=== PATIENT | female | born 1940 | race Two or more races ===

== ENCOUNTER 2018-09-23 11:10 | Outpatient (CLI) | payer OTHER | END 2018-09-23 11:24 | disposition home or self-care (01) | LOC: NUCLEAR 11:10 | DX: M81.0 Age-related osteoporosis without current pathological fracture (principal) ==

== ENCOUNTER 2021-01-03 02:08 | Outpatient (CLI) | payer OTHER | END 2021-01-03 14:09 | disposition home or self-care (01) | LOC: PPH VACUNA 02:08 | PROVIDERS: ATTEND Emergency Medicine Pediatric Emergency Medicine | DX: Z23 Encounter for immunization (principal) ==

== ENCOUNTER → 2021-01-24 16:41 | Outpatient (CLI) | payer OTHER | END | disposition home or self-care (01) | LOC: PPH VACUNA 16:41 | PROVIDERS: ATTEND Emergency Medicine Pediatric Emergency Medicine | DX: Z23 Encounter for immunization (principal) ==

== ENCOUNTER 2021-10-26 15:20 | Outpatient (CLI) | payer OTHER | END 2021-10-26 15:40 | disposition home or self-care (01) | LOC: PPH VACUNA 15:20 | PROVIDERS: ATTEND Emergency Medicine Pediatric Emergency Medicine | DX: Z23 Encounter for immunization (principal) ==